=== PATIENT | male | born 1975 | race Caucasian/White ===

== ENCOUNTER 2017-10-25 09:08 | Inpatient (IN) | payer MEDICAID ==
[2017-10-25] MEDS: KETOROLAC 30 MG INJ IV (11:27)
[2017-10-25 11:36] LABS: ADD MAN DIFF? NO
[2017-10-25 11:40] LABS: WHITE BLOOD COUNT 15.5 10^3/ul (4.8-10.8)
[2017-10-25 11:40] LABS: BASOPHIL # 0.1 10^3/ul (0.0-0.1); BASOPHILS % 0.5 % (0.0-2.0); EOSINOPHILS # 0.2 10^3/ul (0.0-0.5); EOSINOPHILS % 1.2 % (0.0-7.0); HEMATOCRIT 43.6 % (42.0-52.0); LYMPHOCYTES # 0.9 10^3/ul (0.8-2.9); LYMPHOCYTES % 5.9 % (15.0-51.0); MEAN CORPUSCULAR HEMOGLOBIN 32.3 pg (29.0-33.0); MEAN CORPUSCULAR HGB CONC 34.4 g/dl (32.0-37.0); MEAN CORPUSCULAR VOLUME 93.8 fl (82.0-101.0); MEAN PLATELET VOLUME 10.8 fl (7.4-10.4); MONOCYTE # 0.9 10^3/ul (0.3-0.9); MONOCYTES % 5.9 % (0.0-11.0); NEUTROPHIL # 13.4 10^3/ul (1.6-7.5); PLATELET COUNT 166 10^3/UL (140-415); RED BLOOD COUNT 4.65 10^6/ul (4.70-6.10)
[2017-10-25 11:54] LABS: UR RBC 2 /HPF (0-5); UR WBC 1 /HPF (0-5)
[2017-10-25 11:59] LABS: ADD UMIC YES; UR ASCORBIC ACID NEGATIVE (NEGATIVE); UR BILIRUBIN (Dip) NEGATIVE (NEGATIVE); UR BLOOD (Dip) 1+ mg/dL (NEGATIVE); UR CLARITY CLEAR (CLEAR); UR COLOR AMBER (YELLOW); UR GLUCOSE (Dip) NEGATIVE (NEGATIVE); UR KETONES (Dip) NEGATIVE (NEGATIVE); UR LEUKOCYTE ESTERASE (Dip) NEGATIVE Leu/ul (NEGATIVE); UR NITRITE (Dip) NEGATIVE (NEGATIVE); UR SPECIFIC GRAVITY (Dip) 1.023 (1.003-1.030); UR TOTAL PROTEIN (Dip) 1+ mg/dl (NEGATIVE); UR UROBILINOGEN (Dip) NEGATIVE (NEGATIVE)
[2017-10-25 12:02] LABS: ALANINE AMINOTRANSFERASE 28 IU/L (13-69); ALBUMIN 4.1 g/dl (3.3-4.9); ALBUMIN/GLOBULIN RATIO 1.07; ALKALINE PHOSPHATASE 104 IU/L (42-121); ANION GAP 14 (8-16); ASPARTATE AMINO TRANSFERASE 22 IU/L (15-46); BILIRUBIN,INDIRECT 0.5 mg/dl (0-1.1); BILIRUBIN,TOTAL 0.5 mg/dl (0.2-1.3); BLOOD UREA NITROGEN 18 mg/dl (7-20); CALCIUM 8.9 mg/dl (8.4-10.2); CARBON DIOXIDE 31 mmol/L (21-31); CHLORIDE 96 mmol/L (97-110); CREATININE 0.82 mg/dl (0.61-1.24); GLUCOSE 109 mg/dl (70-220); LIPASE 32 U/L (23-300); POTASSIUM 4.7 mmol/L (3.5-5.1); SODIUM 136 mmol/L (135-144); TOTAL PROTEIN 7.9 g/dl (6.1-8.1)
[2017-10-25] MEDS: SOD CHLORIDE 0.9% 1,000 ML IV ×3 (14:05→23:53)
[2017-10-25] MEDS: PIPER-TAZO 3.375 GM IV (PMX) 100 ML IVPB ×2 (14:05→20:21)
[2017-10-25 14:40] LABS: INR 1.09; PROTIME 14.2 Sec (11.9-14.9); PT RATIO 1.1
[2017-10-25] MEDS ORDERED: ONDANSETRON 4 MG INJ IV ×2 (15:00→18:30)
[2017-10-25] MEDS ORDERED: ACETAMINOPHEN 325 MG TAB PO (15:00)
[2017-10-25] MEDS ORDERED: GLYCOPYRROLATE 0.4 MG INJ (17:36)
[2017-10-25] MEDS ORDERED: NEOSTIGMINE 3 MG/3 ML SYRINGE (17:36)
[2017-10-25] MEDS ORDERED: SUCCINYLCHOLINE CHLORIDE 100 MG/5 ML SYG IV (17:36)
[2017-10-25] MEDS ORDERED: LIDOCAINE 2% (SDV) 5 ML INJ (17:36)
[2017-10-25] MEDS ORDERED: PROPOFOL 20 ML (17:36)
[2017-10-25] MEDS ORDERED: ROCURONIUM 50 MG INJ (17:36)
[2017-10-25] MEDS ORDERED: MEPERIDINE 100 MG INJ (17:37)
[2017-10-25] MEDS ORDERED: morphine 2 MG INJ IV (18:00)
[2017-10-25] MEDS ORDERED: NACL 0.9% 3 ML SYG IV (18:00)
[2017-10-25] MEDS: LIDOCAINE 1% (MPF) 30 ML INJ (18:08)
[2017-10-25] MEDS ORDERED: EPHEDrine SULFATE 50 MG/5 ML SYG IV (18:30)
[2017-10-25] MEDS ORDERED: OXYCODONE/ACETAMINOPHEN (5/325) TAB PO ×2 (18:30)
[2017-10-25] MEDS ORDERED: METOCLOPRAMIDE 10 MG INJ IV (18:30)
[2017-10-25] MEDS ORDERED: FENTAnyl 50 MCG/ML VIAL IV ×2 (18:30)
[2017-10-25] MEDS ORDERED: HYDROmorphONE (0.2 MG/ML) 10ML SYG IV ×3 (18:30)
[2017-10-25] MEDS ORDERED: DIPHENHYDRAMINE 50 MG INJ IV (18:30)
[2017-10-25] MEDS ORDERED: MEPERIDINE 25 MG INJ IV (18:30)
[2017-10-25] MEDS ORDERED: MIDAZOLAM 1 MG/ML 2 ML INJ IV (18:30)
[2017-10-25] MEDS ORDERED: hydrALAzine 20 MG INJ IV (18:30)
[2017-10-25] MEDS ORDERED: LABETALOL HCL 20MG INJ IV (18:30)
[2017-10-25] MEDS ORDERED: ACETAMINOPHEN 500 MG TAB PO (19:00)
[2017-10-25] MEDS: FENTAnyl 50 MCG/ML VIAL IV (19:21)
[2017-10-25] MEDS: morphine 2 MG INJ IV ×2 (20:43→23:51)
[2017-10-25] MEDS: HYDROCODONE/APAP (5/325) TAB PO (21:32)
[2017-10-26] MEDS: PIPER-TAZO 3.375 GM IV (PMX) 100 ML IVPB ×4 (00:55→18:00)
[2017-10-26] MEDS: morphine 2 MG INJ IV (02:59)
[2017-10-26] MEDS: HYDROCODONE/APAP (5/325) TAB PO ×3 (04:27→12:09)
[2017-10-26] MEDS: SOD CHLORIDE 0.9% 500 ML IV (04:52)
[2017-10-26 05:31] LABS: ADD MAN DIFF? NO
[2017-10-26 05:33] LABS: WHITE BLOOD COUNT 9.1 10^3/ul (4.8-10.8)
[2017-10-26 05:33] LABS: BASOPHILS % 0.2 % (0.0-2.0); EOSINOPHILS % 0.4 % (0.0-7.0); HEMATOCRIT 29.4 % (42.0-52.0); HEMOGLOBIN 10.1 g/dl (14.0-18.0); LYMPHOCYTES # 0.7 10^3/ul (0.8-2.9); LYMPHOCYTES % 7.9 % (15.0-51.0); MEAN CORPUSCULAR HEMOGLOBIN 32.9 pg (29.0-33.0); MEAN CORPUSCULAR HGB CONC 34.4 g/dl (32.0-37.0); MEAN CORPUSCULAR VOLUME 95.8 fl (82.0-101.0); MEAN PLATELET VOLUME 11.1 fl (7.4-10.4); MONOCYTE # 0.6 10^3/ul (0.3-0.9); MONOCYTES % 6.8 % (0.0-11.0); NEUTROPHIL # 7.7 10^3/ul (1.6-7.5); NEUTROPHILS % 84.3 % (39.0-77.0); PLATELET COUNT 136 10^3/UL (140-415); RED BLOOD COUNT 3.07 10^6/ul (4.70-6.10); RED CELL DISTRIBUTION WIDTH 12.2 % (11.5-14.5)
[2017-10-26] MEDS: PANTOPRAZOLE (EC) 40 MG TAB PO (06:06)
[2017-10-26 06:24] LABS: ALANINE AMINOTRANSFERASE 22 IU/L (13-69); ALBUMIN 2.9 g/dl (3.3-4.9); ALBUMIN/GLOBULIN RATIO 1.07; ALKALINE PHOSPHATASE 70 IU/L (42-121); ANION GAP 14 (8-16); ASPARTATE AMINO TRANSFERASE 19 IU/L (15-46); BILIRUBIN,INDIRECT 0.3 mg/dl (0-1.1); BILIRUBIN,TOTAL 0.3 mg/dl (0.2-1.3); BLOOD UREA NITROGEN 17 mg/dl (7-20); CALCIUM 7.5 mg/dl (8.4-10.2); CARBON DIOXIDE 29 mmol/L (21-31); CHLORIDE 98 mmol/L (97-110); CREATININE 0.92 mg/dl (0.61-1.24); GLUCOSE 122 mg/dl (70-220); POTASSIUM 4.6 mmol/L (3.5-5.1); SODIUM 136 mmol/L (135-144); TOTAL PROTEIN 5.6 g/dl (6.1-8.1)
[2017-10-26] MEDS ORDERED: BUPIVACAINE 0.25%/EPI (MDV) 50 ML VIAL INJ (07:00)
[2017-10-26] MEDS: SOD CHLORIDE 0.9% 1,000 ML IV ×3 (08:35→20:27)
[2017-10-26] MEDS: ENOXAPARIN 40 MG/0.4 ML SYG SC (08:36)
[2017-10-26 15:31] LABS: HEMATOCRIT 27.6 % (42.0-52.0); HEMOGLOBIN 9.5 g/dl (14.0-18.0)
[2017-10-26] MEDS ORDERED: BUPIVACAINE 0.5% (SDV) 30 ML INJ (15:48)
[2017-10-26] MEDS ORDERED: LIDOCAINE 1%/EPI 30 ML INJ (15:48)
[2017-10-26] MEDS ORDERED: GLYCOPYRROLATE 0.4 MG INJ (16:21)
[2017-10-26] MEDS ORDERED: ROCURONIUM 50 MG INJ (16:21)
[2017-10-26] MEDS ORDERED: PROPOFOL 20 ML (16:21)
[2017-10-26] MEDS ORDERED: NEOSTIGMINE 3 MG/3 ML SYRINGE (16:21)
[2017-10-26] MEDS ORDERED: CEFAZOLIN 1 GM INJ (16:21)
[2017-10-26] MEDS ORDERED: FENTAnyl 50 MCG/ML VIAL ×2 (16:24→18:41)
[2017-10-26] MEDS ORDERED: ONDANSETRON 4 MG INJ (16:24)
[2017-10-26] MEDS ORDERED: DEXAMETHASONE 4 MG/ML 1 ML INJ (16:24)
[2017-10-26] MEDS ORDERED: MIDAZOLAM 1 MG/ML 2 ML INJ (16:24)
[2017-10-26] MEDS: BUPIVACAINE 0.5% 30 ML VIAL INJ (16:55)
[2017-10-26] MEDS: LIDOCAINE 1%/EPI 30 ML INJ INJ (16:56)
[2017-10-26] MEDS ORDERED: ALBUMIN HUMAN 5% 500 ML (17:29)
[2017-10-26] MEDS ORDERED: SUGAMMADEX SODIUM 200 MG/2 ML VIAL IV (18:17)
[2017-10-26] MEDS: FENTAnyl 50 MCG/ML VIAL IV (18:53)
[2017-10-26] MEDS ORDERED: HYDROmorphONE (0.2 MG/ML) 10ML SYG IV ×2 (19:00)
[2017-10-26] MEDS: HYDROmorphONE (0.2 MG/ML) 10ML SYG IV (19:02)
[2017-10-26 19:36] LABS: HEMATOCRIT 26.1 % (42.0-52.0); HEMOGLOBIN 8.9 g/dl (14.0-18.0)
[2017-10-26] MEDS ORDERED: VITAMIN A & D 5 GM OINT PACKET TOP (21:19)
[2017-10-27] MEDS: PIPER-TAZO 3.375 GM IV (PMX) 100 ML IVPB ×5 (00:04→23:46)
[2017-10-27] MEDS: morphine 2 MG INJ IV (02:49)
[2017-10-27 04:46] LABS: ADD MAN DIFF? NO
[2017-10-27 04:50] LABS: ABNORMAL IP MESSAGE 1; BASOPHILS % 0.3 % (0.0-2.0); EOSINOPHILS % 0.2 % (0.0-7.0); HEMATOCRIT 26.4 % (42.0-52.0); HEMOGLOBIN 9.3 g/dl (14.0-18.0); LYMPHOCYTES # 0.3 10^3/ul (0.8-2.9); LYMPHOCYTES % 4.5 % (15.0-51.0); MEAN CORPUSCULAR HEMOGLOBIN 32.5 pg (29.0-33.0); MEAN CORPUSCULAR HGB CONC 35.2 g/dl (32.0-37.0); MEAN CORPUSCULAR VOLUME 92.3 fl (82.0-101.0); MEAN PLATELET VOLUME 10.7 fl (7.4-10.4); MONOCYTE # 0.2 10^3/ul (0.3-0.9); MONOCYTES % 3.8 % (0.0-11.0); NEUTROPHIL # 5.5 10^3/ul (1.6-7.5); NUCLEATED RED BLOOD CELLS% 0.5 /100WBC (0.0-0.0); PLATELET COUNT 149 10^3/UL (140-415); POSITIVE DIFF @See below; RED BLOOD COUNT 2.86 10^6/ul (4.70-6.10); RED CELL DISTRIBUTION WIDTH 11.8 % (11.5-14.5)
[2017-10-27 05:25] LABS: ALANINE AMINOTRANSFERASE 27 IU/L (13-69); ALBUMIN/GLOBULIN RATIO 0.96; ALKALINE PHOSPHATASE 59 IU/L (42-121); ANION GAP 16 (8-16); ASPARTATE AMINO TRANSFERASE 19 IU/L (15-46); BILIRUBIN,INDIRECT 0.2 mg/dl (0-1.1); BILIRUBIN,TOTAL 0.2 mg/dl (0.2-1.3); BLOOD UREA NITROGEN 10 mg/dl (7-20); CALCIUM 8.2 mg/dl (8.4-10.2); CARBON DIOXIDE 27 mmol/L (21-31); CHLORIDE 100 mmol/L (97-110); CREATININE 0.67 mg/dl (0.61-1.24); GLUCOSE 134 mg/dl (70-220); POTASSIUM 4.6 mmol/L (3.5-5.1); SODIUM 138 mmol/L (135-144); TOTAL PROTEIN 6.1 g/dl (6.1-8.1)
[2017-10-27 05:29] LABS: MAGNESIUM 2.2 mg/dl (1.7-2.5)
[2017-10-27] MEDS: PANTOPRAZOLE (EC) 40 MG TAB PO (05:45)
[2017-10-27] MEDS: INFLUENZA VIRUS VACCINE 0.5 ML (DISPENSING) IM* (09:12)
[2017-10-27] MEDS: HYDROCODONE/APAP (5/325) TAB PO ×2 (11:36→21:14)
[2017-10-27] MEDS: SOD CHLORIDE 0.9% 1,000 ML IV (15:34)
[2017-10-28] MEDS: SOD CHLORIDE 0.9% 1,000 ML IV ×2 (05:55→14:30)
[2017-10-28] MEDS: PANTOPRAZOLE (EC) 40 MG TAB PO (05:55)
[2017-10-28] MEDS: PIPER-TAZO 3.375 GM IV (PMX) 100 ML IVPB ×3 (05:55→18:28)
[2017-10-28] MEDS: ONDANSETRON 4 MG INJ IV (13:00)
[2017-10-28] MEDS: HYDROCODONE/APAP (5/325) TAB PO (13:01)
[2017-10-28 13:11] LABS: ADD MAN DIFF? NO
[2017-10-28 13:52] LABS: WHITE BLOOD COUNT 8.9 10^3/ul (4.8-10.8)
[2017-10-28 13:52] LABS: BASOPHILS % 0.2 % (0.0-2.0); EOSINOPHILS # 0.1 10^3/ul (0.0-0.5); EOSINOPHILS % 1.1 % (0.0-7.0); HEMATOCRIT 30.9 % (42.0-52.0); HEMOGLOBIN 10.7 g/dl (14.0-18.0); LYMPHOCYTES # 1.4 10^3/ul (0.8-2.9); MEAN CORPUSCULAR HEMOGLOBIN 32.1 pg (29.0-33.0); MEAN CORPUSCULAR HGB CONC 34.6 g/dl (32.0-37.0); MEAN CORPUSCULAR VOLUME 92.8 fl (82.0-101.0); MEAN PLATELET VOLUME 10.3 fl (7.4-10.4); MONOCYTE # 0.8 10^3/ul (0.3-0.9); MONOCYTES % 9.3 % (0.0-11.0); NEUTROPHIL # 6.4 10^3/ul (1.6-7.5); NEUTROPHILS % 72.4 % (39.0-77.0); PLATELET COUNT 243 10^3/UL (140-415); RED BLOOD COUNT 3.33 10^6/ul (4.70-6.10); RED CELL DISTRIBUTION WIDTH 12.1 % (11.5-14.5)
[2017-10-28] MEDS: morphine 2 MG INJ IV (18:28)
[2017-10-28] MEDS: DOCUSATE SODIUM 250 MG CAP PO (18:28)
[2017-10-29] MEDS: PIPER-TAZO 3.375 GM IV (PMX) 100 ML IVPB ×4 (00:09→18:52)
[2017-10-29] MEDS: HYDROCODONE/APAP (5/325) TAB PO ×2 (00:09→06:54)
[2017-10-29] MEDS: SOD CHLORIDE 0.9% 1,000 ML IV ×2 (00:30→12:40)
[2017-10-29] MEDS: PANTOPRAZOLE (EC) 40 MG TAB PO (05:02)
[2017-10-29 05:43] LABS: ADD MAN DIFF? NO
[2017-10-29 05:50] LABS: BASOPHILS % 0.4 % (0.0-2.0); EOSINOPHILS # 0.2 10^3/ul (0.0-0.5); EOSINOPHILS % 2.8 % (0.0-7.0); HEMATOCRIT 29.2 % (42.0-52.0); HEMOGLOBIN 10.2 g/dl (14.0-18.0); MEAN CORPUSCULAR HEMOGLOBIN 32.2 pg (29.0-33.0); MEAN CORPUSCULAR HGB CONC 34.9 g/dl (32.0-37.0); MEAN CORPUSCULAR VOLUME 92.1 fl (82.0-101.0); MONOCYTE # 0.8 10^3/ul (0.3-0.9); MONOCYTES % 10.3 % (0.0-11.0); NEUTROPHIL # 4.7 10^3/ul (1.6-7.5); NEUTROPHILS % 59.6 % (39.0-77.0); PLATELET COUNT 267 10^3/UL (140-415); POSITIVE DIFF @See below; RED BLOOD COUNT 3.17 10^6/ul (4.70-6.10); RED CELL DISTRIBUTION WIDTH 11.9 % (11.5-14.5)
[2017-10-29 06:04] LABS: ANION GAP 12 (8-16); BLOOD UREA NITROGEN 10 mg/dl (7-20); CALCIUM 8.2 mg/dl (8.4-10.2); CARBON DIOXIDE 29 mmol/L (21-31); CHLORIDE 102 mmol/L (97-110); GLUCOSE 97 mg/dl (70-220); POTASSIUM 3.7 mmol/L (3.5-5.1); SODIUM 139 mmol/L (135-144)
[2017-10-29] MEDS: DOCUSATE SODIUM 250 MG CAP PO (10:04)
[2017-10-29] MEDS: ONDANSETRON 4 MG INJ IV (12:40)
[2017-10-29] MEDS: POLYETHYLENE GLYCOL 17 GM PACKET PO (16:51)
[2017-10-29] MEDS ORDERED: morphine LIQ (10 MG/5 ML) CUP PO (17:00)
[2017-10-30] MEDS: PIPER-TAZO 3.375 GM IV (PMX) 100 ML IVPB ×4 (00:04→18:10)
[2017-10-30] MEDS: SOD CHLORIDE 0.9% 1,000 ML IV ×3 (00:04→11:37)
[2017-10-30 05:10] LABS: WHITE BLOOD COUNT 8.6 10^3/ul (4.8-10.8)
[2017-10-30 05:10] LABS: HEMATOCRIT 29.1 % (42.0-52.0); HEMOGLOBIN 10.2 g/dl (14.0-18.0); MEAN CORPUSCULAR HGB CONC 35.1 g/dl (32.0-37.0); MEAN CORPUSCULAR VOLUME 91.2 fl (82.0-101.0); MEAN PLATELET VOLUME 9.6 fl (7.4-10.4); PLATELET COUNT 335 10^3/UL (140-415); POSITIVE DIFF @See below; RED BLOOD COUNT 3.19 10^6/ul (4.70-6.10); RED CELL DISTRIBUTION WIDTH 11.9 % (11.5-14.5)
[2017-10-30] MEDS: PANTOPRAZOLE (EC) 40 MG TAB PO (05:29)
[2017-10-30 05:33] LABS: ANION GAP 11 (8-16); BLOOD UREA NITROGEN 8 mg/dl (7-20); CALCIUM 8.2 mg/dl (8.4-10.2); CARBON DIOXIDE 28 mmol/L (21-31); CHLORIDE 105 mmol/L (97-110); CREATININE 0.55 mg/dl (0.61-1.24); GLUCOSE 100 mg/dl (70-220); POTASSIUM 3.8 mmol/L (3.5-5.1); SODIUM 140 mmol/L (135-144)
[2017-10-30 05:35] LABS: ADD MAN DIFF? YES
[2017-10-30 07:50] LABS: ANISOCYTOSIS 1+ (0-0); BAND NEUTROPHILS #M 0.6 10^3/ul (0.0-0.6); BAND NEUTROPHILS % (M) 7 % (0-4); BURR CELLS 3+ (0-0); EOSINOPHILS % (M) 2 % (0-7); GIANT THROMBO% (M) 2 % (0-0); LYMPHOCYTES #M 1.7 10^3/ul (0.8-2.9); LYMPHOCYTES % (M) 20 % (15-51); MONOCYTE #M 0.6 10^3/ul (0.3-0.9); MONOCYTES % (M) 8 % (0-11); PLATELET ESTIMATE NORMAL; POIKILOCYTOSIS 3+ (0-0); POLYCHROMASIA 1+ (0-0); SEG NEUT #M 5.5 10^3/ul (1.6-7.5); SEGMENTED NEUTROPHILS (M) % 63 % (39-77); SMUDGE%M 12 % (0-0)
[2017-10-30] MEDS: DOCUSATE SODIUM 250 MG CAP PO (08:43)
[2017-10-30] MEDS: POLYETHYLENE GLYCOL 17 GM PACKET PO (08:43)
== END 2017-10-30 21:12 | disposition home health service (06) | DRG 339 ==
LOC: FTE 09:08 → REC 14:57 → MS1 20:00
PROC: 0DTJ4ZZ Resection of Appendix, Percutaneous Endoscopic Approach (ICD-10-PCS; principal; 2017-10-25 17:48)
PROC: 0WCJ4ZZ Extirpation of Matter from Pelvic Cavity, Percutaneous Endoscopic Approach (ICD-10-PCS; 2017-10-25 17:48)
DX: K35.3 Acute appendicitis with localized peritonitis (principal); D62 Acute posthemorrhagic anemia; K91.870 Postprocedural hematoma of a digestive system organ or structure following a digestive system procedure; D72.829 Elevated white blood cell count, unspecified; F10.10 Alcohol abuse, uncomplicated; F17.200 Nicotine dependence, unspecified, uncomplicated; F14.90 Cocaine use, unspecified, uncomplicated; Y83.9 Surgical procedure, unspecified as the cause of abnormal reaction of the patient, or of later complication, without mention of misadventure at the time of the procedure; Y92.239 Unspecified place in hospital as the place of occurrence of the external cause; K76.9 Liver disease, unspecified; R33.8 Other retention of urine
CPT/HCPCS: 36415; 71045; 74176; 80048; 80053; 81001; 83690; 83735; 85014; 85018; 85025; 85610; 85730; 86850; 86900; 86901; 88304; 93005; 96374; 96375; 99285-25

== ENCOUNTER 2018-09-23 07:56 | Emergency (ER) | payer SELFPAY, MEDICAID ==
[2018-09-23] MEDS: IBUPROFEN 800 MG TAB PO (08:59)
[2018-09-23] MEDS: HYDROCODONE/APAP (5/325) TAB PO (08:59)
== END 2018-09-23 14:51 | disposition short-term general hospital (02) ==
LOC: FTE 14:51
DX: S32.020A Wedge compression fracture of second lumbar vertebra, initial encounter for closed fracture (principal); F17.210 Nicotine dependence, cigarettes, uncomplicated; W18.39XA Other fall on same level, initial encounter; Y92.009 Unspecified place in unspecified non-institutional (private) residence as the place of occurrence of the external cause
CPT/HCPCS: 72100; 72131; 73110-LT; 99285-25